=== PATIENT | female | born 1975 | race Caucasian/White ===

== ENCOUNTER → 2016-12-06 | Outpatient (CLI) | payer OTHER | LOC: RAD 18:03 | DX: R05 Cough (principal) ==

== ENCOUNTER 2019-01-30 19:12 | Emergency (ER) | payer OTHER ==
[~2019-01-30] VITALS: Ht 172.7 cm; Wt 118.2 kg
[2019-01-30 19:52] LABS: EOS # 0.2 (0.04-0.40); EOS % 1.6 % (1.0-5.0); HEMATOCRIT 37.1 % (37.0-47.0); HEMOGLOBIN 12.7 g/dL (12.5-16.0); MEAN CELL VOLUME 88 fl (78-100); MEAN CORPUSCULAR HEMOGLOBIN 30 pg (27-31); MEAN CORPUSCULAR HGB CONC 34 g/dL (33-37); MEAN PLATELET VOLUME 9.5 fl (7.4-10.4); MONO # 0.6 (0.20-0.80); NEU # 7.8 (1.40-6.50); PLATELET COUNT 341 K/mm3 (130-400); RED CELL DISTRIBUTION WIDTH 12.8 % (11.5-14.5); WHITE BLOOD COUNT 10.6 K/mm3 (4.8-10.8)
[2019-01-30] MEDS ORDERED: VOLTAREN 75 DR75 MG (19:59)
[2019-01-30] MEDS ORDERED: PROPRANOLOL HCL40 M2 PO (19:59)
[2019-01-30] MEDS ORDERED: VENLAFAXINE HY150 MG PO (20:00)
[2019-01-30] MEDS ORDERED: PRILOSEC 20MG20 MG PO (20:00)
[2019-01-30 20:04] LABS: ALBUMIN 4.1 g/dL (3.5-5.0); POTASSIUM 3.6 mmol/L (3.5-5.1)
[2019-01-30 20:06] LABS: CALCIUM 9.7 mg/dL (8.3-10.5)
[2019-01-30 20:09] LABS: TOTAL BILIRUBIN 0.4 mg/dL (0.2-1.2)
[2019-01-30 20:54] LABS: PH-URINE 8.5 (5.0 - 8.0); URINE APPEARANCE HAZY; URINE COLOR YELLOW; URINE GLUCOSE NEGATIVE (NEGATIVE); URINE KETONE 2+ (NEGATIVE); URINE PROTEIN(semi-quant) NEGATIVE (NEGATIVE)
[2019-01-30 20:55] LABS: URINE BILIRUBIN NEGATIVE (NEGATIVE); URINE BLOOD NEGATIVE (NEGATIVE); URINE LEUKOCYTE ESTERASE NEGATIVE (NEGATIVE); URINE NITRATE NEGATIVE (NEGATIVE); URINE UROBILINOGEN NORMAL (NORMAL); URINE WBC 0-1 /hpf (0-3)
[2019-01-30] MEDS ORDERED: ONDANSETRON ODT8 MG PO (23:01)
[2019-01-30] MEDS ORDERED: PERCOCET 325 MG1 TA2 PO (23:02)
[2019-01-30 23:45] VITALS: BP 122/74
== END 2019-01-30 23:45 | disposition home or self-care (01) ==
LOC: ED 19:12
PROVIDERS: Nurse Practitioner Family
DX: K56.1 Intussusception (principal); G43.909 Migraine, unspecified, not intractable, without status migrainosus; G47.30 Sleep apnea, unspecified
CPT/HCPCS: J1885; J2405; J7030; Q9967

== ENCOUNTER → 2019-02-22 | Day surgery (SDC) | payer OTHER ==
[2019-01-30 23:45] VITALS: BP 122/74
[~2019-02-22] MED LIST: ONDANSETRON ODT8 MG PO; PERCOCET 325 MG1 TA2 PO; PRILOSEC 20MG20 MG PO; PROPRANOLOL HCL40 M2 PO; VENLAFAXINE HY150 MG PO; VOLTAREN 75 DR75 MG
== END ==
LOC: MSO 09:26
DX: K63.89 Other specified diseases of intestine (principal); K55.029 Acute infarction of small intestine, extent unspecified; K63.3 Ulcer of intestine; Z88.1 Allergy status to other antibiotic agents; Z88.8 Allergy status to other drugs, medicaments and biological substances; G47.33 Obstructive sleep apnea (adult) (pediatric); G43.909 Migraine, unspecified, not intractable, without status migrainosus; Z87.891 Personal history of nicotine dependence
CPT/HCPCS: 00811; J2704; J3010; J7120

== ENCOUNTER → 2021-01-15 | Outpatient (CLI) | payer OTHER | LOC: MAMMO 13:45 | DX: N63.11 Unspecified lump in the right breast, upper outer quadrant (principal) ==

== ENCOUNTER → 2021-06-12 | Outpatient (CLI) | payer OTHER ==
[2021-06-12 09:33] LABS: HEMATOCRIT 35.7 % (37.0-47.0); HEMOGLOBIN 11.6 g/dL (12.5-16.0); MEAN CELL VOLUME 93 fl (78-100); MEAN CORPUSCULAR HEMOGLOBIN 30 pg (27-31); MEAN CORPUSCULAR HGB CONC 33 g/dL (33-37); MEAN PLATELET VOLUME 9.3 fl (7.4-10.4); PLATELET COUNT 220 K/mm3 (130-400); RED BLOOD COUNT 3.83 M/mm3 (4.10-5.30); RED CELL DISTRIBUTION WIDTH 14.7 % (11.5-14.5)
[2021-06-12 10:01] LABS: ALBUMIN 4.3 g/dL (3.5-5.0); POTASSIUM 4.2 mmol/L (3.5-5.1)
[2021-06-12 10:02] LABS: CALCIUM 9.5 mg/dL (8.3-10.5); WHITE BLOOD COUNT 33.1 K/mm3 (4.8-10.8)
[2021-06-12 10:03] LABS: TOTAL PROTEIN 7.1 g/dL (6.4-8.3)
[2021-06-12 10:05] LABS: TOTAL BILIRUBIN 0.3 mg/dL (0.2-1.2)
[2021-06-12 10:23] LABS: BAND 10 % (0-10); LYMPHOCYTE 9 % (20-51); MONOCYTE 3 % (3-10); NEUTROPHILS 77 % (42-75)
[2021-06-12 11:29] LABS: ERYTHROCYTE SEDIMENTATION RATE 34 mm/hr (0-20)
== END ==
LOC: LAB 09:08
PROVIDERS: Nurse Practitioner
DX: L50.9 Urticaria, unspecified (principal); Z20.822 Contact with and (suspected) exposure to COVID-19; Z92.21 Personal history of antineoplastic chemotherapy